=== PATIENT | female | born 1945 | race Caucasian/White ===

== ENCOUNTER 2018-11-23 09:13 | Emergency (ER) | payer MEDICARE, MEDICAID ==
[2018-11-23 09:44] VITALS: BP 137/68
--- NOTE | 2018-11-23 10:10 | UC ---
Ear Complaint HPI - HPI Summary HPI Summary: Patient presents to urgent care center by her primary for irrigation of her bilateral ears. Patient has been reporting ongoing ear pain. Patient was given a prescription for Cipro hydrocortisone drops yesterday. Patient took 1 dose but states it did not help. Patient has impacted cerumen bilaterally was sent here for irrigation. Patient states she does use Q-tips but not every day. Patient states she's got no history of small ear canals. Patient states sometimes she gets dizzy when there is pressure in her ears. Patient's medications reviewed - History of Current Complaint Chief Complaint: UCEar Stated Complaint: BI LAT EAR CONCERN Time Seen by Provider: 11/23/18 09:50 Hx Obtained From: Patient ?: No Pain Intensity: 8 - Allergies/Home Medications Allergies/Adverse Reactions: Allergies Allergy/AdvReac Type Severity Reaction Status Date / Time escitalopram [From Lexapro] Allergy Severe Unknown Verified 11/23/18 10:04 Reaction Details azithromycin [From Zithromax] Allergy Unknown Unknown Verified 11/23/18 10:04 Reaction Details codeine Allergy Unknown Unknown Verified 11/23/18 10:04 Reaction Details diphenhydramine Allergy Unknown Unknown Verified 11/23/18 10:04 [From Benadryl] Reaction Details paroxetine [From Paxil] Allergy Unknown Unknown Verified 11/23/18 10:04 Reaction Details Penicillins Allergy Unknown heart Verified 11/23/18 09:32 races, rash topiramate [From Topamax] Allergy Unknown Unknown Verified 11/23/18 10:04 Reaction Details tramadol Allergy Unknown Unknown Verified 11/23/18 10:04 Reaction Details steroids Allergy Unknown heart races Uncoded 11/23/18 09:32 Home Medications: Home Medications Albuterol HFA INHALER* [Ventolin HFA Inhaler*] 2 puff INH Q4H PRN 11/23/18 [ History Confirmed 11/23/18] Aspirin [Children's Aspirin] 81 mg PO DAILY 11/23/18 [History Confirmed 11/23/18 ] Budesonide/Formote 160/4.5(NF) [Symbicort 160/4.5 (NF)] 2 puff INH BID 11/23/18 [History Confirmed 11/23/18] Ciproflox/Dexameth OTIC.SUSP* [Ciprodex Otic*] 4 drop BOTH EARS BID 11/23/18 [ History Confirmed 11/23/18] Levothyroxine TAB* [Synthroid TAB*] 50 mcg PO DAILY 11/23/18 [History Confirmed 11/23/18] Meclizine TAB* [Antivert 12.5 TAB*] 12.5 mg PO Q4H PRN 11/23/18 [History Confirmed 11/23/18] Metoprolol Succinate 50 mg PO DAILY 11/23/18 [History Confirmed 11/23/18] Omeprazole 20 mg PO DAILY 11/23/18 [History Confirmed 11/23/18] Ondansetron TAB* [Zofran 4 MG Tab*] 4 mg PO Q4H PRN 11/23/18 [History Confirmed 11/23/18] busPIRone TAB* [Buspar TAB*] 10 mg PO TID 11/23/18 [History Confirmed 11/23/18] PMH/Surg Hx/FS Hx/Imm Hx Previously Healthy: Yes - Surgical History Surgical History: Yes Surgery Procedure, Year, and Place: HYSTERECTOMY, CHOLYCYSTECTOMY, TONSILECTOMY. KIDNEY STENT - Family History Known Family History: Positive: Non-Contributory - Social History Occupation: Retired Lives: With Family Alcohol Use: None Substance Use Type: None Smoking Status (MU): Heavy Every Day Tobacco Smoker Type: Cigarettes Amount Used/How Often: 1 PPD Household Exposure Type: Cigarettes Review of Systems All Other Systems Reviewed And Are Negative: Yes Constitutional: Positive: Negative Skin: Positive: Negative Eyes: Positive: Negative ENT: Positive: Ear Ache Physical Exam - Summary Physical Exam Summary: Vital Signs Reviewed: Yes A+Ox3, no distress Eyes: Conjunctiva Clear ENT: Hearing grossly normal Pt with bilateral cerumen impaction - unable to visualize TM b/l mmmoist neck: supple Respiratory: Positive: No respiratory distress, No accessory muscle use Cardiovascular: skin color reflect adequate perfusion Musculoskeletal Exam: PRADHAN x 4 without difficulty Neurological: Positive: Alert, ambulatory without difficulty Psychological: Positive: Normal Response To Family Skin: Positive: no rash, no ecchymosis Triage Information Reviewed: Yes Vital Signs: Initial Vital Signs Temp 99 F 11/23/18 09:35 Pulse 66 11/23/18 09:35 Resp 18 11/23/18 09:35 BP 137/68 11/23/18 09:35 Pulse Ox 96 11/23/18 09:35 Re-Evaluation - Re-Evaluation First Eval Change: Improved - right ear markedly improved - some residual wax - pt unable to tolerate manual removal - recommend debrox continue with ciprodex as prescribed left: little out with water irritation -pt not tolerating irritation or manual Will place colace and attempt re-irrigation If pt doesn't tolerate will d/c wtih debrox return here, pcp for irrigation Second Eval Comment: pt unable to tolerate irrigation on left. will Rx debrox. recommend use BID. return her eor Dr. Gibbs 10-14days. use ciprodex as prescribed by PCP Ear Complaint Course/Dx - Course Course Of Treatment: Pt presents for irrigation of b/l ears for cerumen impaction. Pt has previously seen Dr. Gibbs for same PCP sent to today - Rx ciprodex yesterday cerumen very hard will attempt irrigation and reassess - Differential Dx/Diagnosis Provider Diagnosis: Cerumen impaction Discharge - Sign-Out/Discharge Documenting (check all that apply): Patient Departure All imaging exams completed and their final reports reviewed: No Studies - Discharge Plan Condition: Stable Disposition: HOME Prescriptions: Carbamide Peroxide 6.5% OTIC* [DEBROX 6.5% Otic*] 5 drop BOTH EARS BID #1 bottle Patient Education Materials: Cerumen Impaction (ED) Referrals: Bar Anaya MD [Primary Care Provider] - Additional Instructions: - Use ear drops a prescribed by your doctor yesterday for inflammation and pain - Okay to use ear drops prescribed here to help soften wax. You should used every day and return here or to your doctor's office to them irrigated in 12-14 days - Contact your doctor for follow-up. If you continue with problems, you may need to be evaluated by an gear lapping machine operator at the recommendation of your primary care doctor - Billing Disposition and Condition Condition: STABLE Disposition: Home
[2018-11-23] MEDS ORDERED: Docusate LIQ* 100 MG/10 ML UDC PO ONE (10:43)
== END 2018-11-23 11:24 | disposition home or self-care (01) ==
LOC: UCCORT 09:13
DX: H61.23 Impacted cerumen, bilateral (principal); F17.210 Nicotine dependence, cigarettes, uncomplicated; Z88.8 Allergy status to other drugs, medicaments and biological substances; Z88.1 Allergy status to other antibiotic agents; Z88.5 Allergy status to narcotic agent; Z88.0 Allergy status to penicillin; Z79.82 Long term (current) use of aspirin
CPT/HCPCS: 99203; A9270-GY; G0463